=== PATIENT | male | born 1945 | race Hispanic/Latino ===

== ENCOUNTER 2019-10-21 14:21 | Inpatient (IN) | payer OTHER, MEDICARE ==
[~2019-10-21] VITALS: Ht 162.6 cm; Wt 70.3 kg
[~2019-10-21 14:21] MED LIST: ETOMIDATE 2 MG/ML 10 ML VIAL IVP ONE; SUCCINYLCHOLINE CHLORIDE 20 MG/ML 10 ML VIAL IVP ONE
[2019-10-21 15:12] LABS: BASOPHILS % (AUTO) 0.7 % (0.0-5.0); EOSINOPHILS % (AUTO) 0.1 % (0.0-8.0); LYMPHOCYTES % (AUTO) 9.1 % (21.0-51.0); MEAN CORPUSCULAR HGB CONC 31.6 g/dL (32.0-36.0); MEAN CORPUSCULAR VOLUME 95.1 fL (79-99); MONOCYTES % (AUTO) 9.1 % (3.0-13.0); NEUTROPHILS % (AUTO) 80.7 % (40.0-77.0); NUCLEATED RED BLOOD CELLS 0.4 % (0.0-0.19); PLATELET COUNT (AUTO) 113 K/uL (130-400); RED BLOOD CELL COUNT(AUTO) 7.19 MIL/uL (4.50-6.20); RED CELL DISTRIBUTION WIDTH 18.3 % (11.0-15.5); WHITE BLOOD COUNT (AUTO) 11.4 K/uL (4.8-10.8)
[2019-10-21 15:16] LABS: HEMATOCRIT 68.4 % (42-54)
[2019-10-21 15:20] LABS: APPEARANCE,URINE Cloudy (CLEAR); BILIRUBIN,URINE Negative (NEGATIVE); COLOR,URINE Dark Yellow (YELLOW); GLUCOSE, URINE (UA) Negative (NEGATIVE); KETONES,URINE 15 mg/dL (NEGATIVE); LEUKOCYTE ESTERASE ,URINE Small (NEGATIVE); NITRATE,URINE Negative (NEGATIVE); OCCULT BLOOD,URINE Negative (NEGATIVE); PROTEIN,URINE POS 1+ mg/dL (NEGATIVE)
[2019-10-21] MEDS ORDERED: METHYLPREDNISOLONE SOD SUCC 125MG/2ML VIAL ONE (15:20)
[2019-10-21] MEDS ORDERED: LEVOFLOXACIN 500 MG/D5W 100 ML 100 ML ONE (15:20)
[2019-10-21] MEDS ORDERED: ALBUTEROL INHALER 90MCG/INH IH ONE (15:20)
[2019-10-21 15:24] LABS: INR 1.71 (0.85-1.15); PARTIAL THROMBOPLASTIN TIME 30.8 SEC (26.3-35.5); PROTHROMBIN TIME 18.1 SEC (9.6-11.6)
[2019-10-21 15:28] LABS: CREATININE 1.2 mg/dL (0.5-1.5); POTASSIUM 5.3 mmol/L (3.5-5.1)
[2019-10-21 15:39] LABS: ALBUMIN 3.9 g/dL (3.5-5.0); BILIRUBIN,TOTAL 2.3 mg/dL (0.2-1.0); TOTAL PROTEIN, SERUM 7.5 g/dL (6.0-8.3); TROPONIN I 0.12 ng/mL (0.00-0.06)
[2019-10-21 15:40] LABS: BACTERIA,URINE Few /HPF (None Seen); MUCUS,URINE Moderate LPF (None Seen); SPERM,URINE Moderate /HPF (None Seen); SQUAMOUS EPITHELIAL CELL,UR Moderate /HPF (0-2)
[2019-10-21 15:46] LABS: RAPID GROUP A STREP POSITIVE (NEGATIVE)
[2019-10-21 16:15] LABS: ABG BASE EXCESS 4.7 mmol/L (-2.0-3.0); ABG HCO3 34.7 mmol/L (21.0-28.0); ABG OXYGEN SATURATION 63.2 % (95.0-99.0); ABG PCO2 78 mmHg (35-48)
[2019-10-21 18:30] VITALS: BP 121/72
--- NOTE | 2019-10-21 19:00 | NUR ---
RECEIVED REPORT FROM CAROLYN BENAVIDES. PT ARRIVED VIA STRETCHER AT 1830 TO ROOM 223, KENNEDY RECEIVED PT. PT ON HIGH FLOW. NO MEDICAL HISTORY OBTAINED AND PT UNABLE TO ANSWER. PT IS ABLE TO IDENTIFY HIMSELF. NO ADMISSION ENTERED DUE TO PT UNABLE TO ANSWER, POOR HISTORIAN. GOINS WAS INSERTED IN THE ER TODAY,18FR. PT ON HIGH FLOW, O2 AT 91%. BED AT LOWEST LEVEL, WITH BED RAILS UP. CALL LIGHT WITHIN REACH.
--- NOTE | 2019-10-21 19:30 | NUR ---
PT ABLE TO IDENTIFY HIMSELF, STATES HIS NAME. PT TALKING WITH CONFUSION. DOES NOT KNOW WHERE IS. REORIENTED PT TO PLACE ([facility]) AND HIS ROOM. NO FACIAL GRIMACING. NO MOANING. NO DISTRESS. PT ON HIGH FLOW, O2 AT 92%.
--- NOTE | 2019-10-21 20:20 | NUR ---
RECEIVED A PHONE CALL FROM PATIENTS SISTER ENRICO MANTILLA ([phone]). SISTER STATES SHE HAD TO BRING CONRAD (PATIENT) TO ER DUE TO REFUSING HIS MEDS (FUROSEMIDE 20MG BID AND TAMSULOSIN 4MG QD, 2 INHALERS, ONE BEING ALBUTEROL), NOT EATING, UNABLE TO VOID, REFUSING TO BE SHOWERED OR CHANGED. SISTER STATES PT HAS NOT SEEN DR JUDGE IN A VERY LONG TIME BUT THINKS HE HAD AN APPT THIS WEEK WITH DR JUDGE. SISTER STATES 4 SIBLINGS LIVE TOGETHER IN [place]. PT STILL SMOKES CIGARETTES.
[2019-10-21 20:40] LABS: ABG BASE EXCESS 8.5 mmol/L (-2.0-3.0); ABG HCO3 38.2 mmol/L (21.0-28.0); ABG PCO2 78 mmHg (35-48)
[2019-10-21] MEDS ORDERED: IPRATROPIUM/ALBUTEROL SULFATE 3 ML SOLUTION IH PRN (21:15)
[2019-10-21] MEDS ORDERED: FURO20TA6 PO (21:18)
[2019-10-21] MEDS ORDERED: TAMS-1 PO (21:19)
[2019-10-22] MEDS ORDERED: FUROSEMIDE 10 MG/ML 2ML VIAL ONE (00:05)
[2019-10-22 00:25] VITALS: BP 152/96
[2019-10-22] MEDS ORDERED: ALBUTEROL SULFATE/IPRATROPIUM 103/18 MCG/PUFF 14.7 GM INHR IH PRN (02:00)
[2019-10-22 03:53] VITALS: BP 149/86
[2019-10-22] MEDS: FUROSEMIDE 10 MG/ML 2ML VIAL IV SCH ×2 (06:08→06:09)
[2019-10-22] MEDS ORDERED: IPRATROPIUM/ALBUTEROL SULFATE 3 ML SOLUTION IH PRN (07:00)
[2019-10-22 08:19] VITALS: BP 134/95
[2019-10-22] MEDS ORDERED: BUDESONIDE 0.5 MG/2 ML INH IH SCH (09:00)
[2019-10-22 12:07] VITALS: BP 140/88
--- NOTE | 2019-10-22 13:30 | NUR ---
TJ PLAN PATIENT IN COVID UNIT ISOLATION. NO PHONE NUMBERS AVAILABLE ON FACE SHEET. NO ANSWER TO CALL IN ROOM. BLACK WILL CONTINUE TO FOLLOW. Addendum: 10/22/19 at 1331 by BENJAMIN SABA RN CM Amended: Links added.
--- NOTE | 2019-10-22 13:33 | NUR ---
PATIENT CONTINUES TO PULL ALL HIS EQUIPMENT OFF. PULLED OFF HIS HIGH FLOW OXYGEN AND HIS GOINS CATHETER WELL HIS IV. PULLING OFF HIS HEART MONITOR AND WILL BE TRANSFERRED TO ROOM [facility] WITH SITTER PATIENT WILL PULL ON ALL HIS HOSPITAL EQUIPMENT AND ANY IV THAT HE MIGHT HAVE. WILL ATTEMPT TO START ANOTHER. Addendum: 10/22/19 at 1338 by MILLY STOREY RN RN Amended: Links added.
[2019-10-22] MEDS ORDERED: LEVOFLOXACIN 500 MG/D5W 100 ML 100 ML IV SCH (15:00)
--- NOTE | 2019-10-22 15:40 | NUR ---
RECEIVED PATIENT A THIS TIME . CASE RESUMED . PATIENT AWAKE AND ALERT. DR JUDGE EVALUATING PATIENT . 1:1 SITTER AT BEDSIDE . CONT ON HIGH FLOW OXYGEN . WILL CONT TO MONITOR
--- NOTE | 2019-10-22 16:00 | NUR ---
INFORMED DR JUDGE ON YEST HGB 21.6 HCT 68.4 AND POTASSIUM 5.3
[2019-10-22 16:37] LABS: BASOPHILS % (AUTO) 0.1 % (0.0-5.0); HEMATOCRIT 58.2 % (42-54); LYMPHOCYTES % (AUTO) 1.8 % (21.0-51.0); MEAN CORPUSCULAR HEMOGLOBIN 29.8 pg (27.0-33.0); MEAN CORPUSCULAR HGB CONC 31.3 g/dL (32.0-36.0); MEAN CORPUSCULAR VOLUME 95.3 fL (79-99); MONOCYTES % (AUTO) 7.9 % (3.0-13.0); NEUTROPHILS % (AUTO) 88.6 % (40.0-77.0); NUCLEATED RED BLOOD CELLS 0.4 % (0.0-0.19); PLATELET COUNT (AUTO) 83 K/uL (130-400); RED BLOOD CELL COUNT(AUTO) 6.11 MIL/uL (4.50-6.20); RED CELL DISTRIBUTION WIDTH 17.1 % (11.0-15.5); WHITE BLOOD COUNT (AUTO) 14.4 K/uL (4.8-10.8)
[2019-10-22 16:48] LABS: CREATININE 0.8 mg/dL (0.5-1.5)
[2019-10-22 17:40] VITALS: BP 139/97
[2019-10-22 20:00] VITALS: BP 124/84
--- NOTE | 2019-10-22 20:00 | NUR ---
Tiesha from [facility] came to do duplex arterial doppler on both extremeties. patient has zero arterial flow. texted dr. catalan to let him know. he is aware. he replied
[2019-10-22] MEDS ORDERED: FUROSEMIDE 20 MG TABLET PO SCH (21:00)
[2019-10-22] MEDS: BUDESONIDE 0.5 MG/2 ML INH IH SCH (22:30)
--- NOTE | 2019-10-22 23:49 | NUR ---
received orders for cardiology consult in am for cold feet and no arterial flow, called respiratory therapist for nightly bipap. let dr. catalan know about patient's anxiety and high blood pressure of 161/85 and tachycardia of 113
[2019-10-23] VITALS (15 sets, daily range): BP systolic 83–146; BP diastolic 55–88
[2019-10-23] MEDS ORDERED: LORAZEPAM 2 MG/ML 1 ML VIAL IVP ONE
[2019-10-23] MEDS ORDERED: LORAZEPAM 2 MG/ML 1 ML VIAL ONE (00:02)
[2019-10-23] MEDS ORDERED: LORAZEPAM 2 MG/ML 1 ML VIAL IVP PRN (00:30)
[2019-10-23] MEDS: BUDESONIDE 0.5 MG/2 ML INH IH SCH ×2 (07:02→18:32)
--- NOTE | 2019-10-23 08:40 | NUR ---
RAPID RESPONSE CALLED, PATIENT NO RESPONDING TO PAINFUL STIMULI.
--- NOTE | 2019-10-23 08:45 | NUR ---
DR. ALFIE BROWN, NO ANSWER TO OFFICE OR CELL PHONE.
[2019-10-23 08:50] LABS: ABG BASE EXCESS 8.5 mmol/L (-2.0-3.0); ABG HCO3 47.9 mmol/L (21.0-28.0); ABG OXYGEN SATURATION 95.5 % (95.0-99.0); ABG PCO2 > 147 mmHg (35-48)
[2019-10-23] MEDS: TAMSULOSIN HCL 0.4 MG CAP.ER.24H PO SCH (09:00)
[2019-10-23] MEDS ORDERED: FLUMAZENIL 0.1MG/1ML 5ML VIAL IV SCH (09:00)
--- NOTE | 2019-10-23 10:01 | NUR ---
FULL CODE Sw contacted by Yanique claire. Pt needing to be intubated, family can not be reached. SW spoke to pt's sister Yuli Donahue [phone]. Informed sister that pt was not doing well and asked about pt's wishes. Sister stated that pt has never had discussed with her, and pt has no or children. She and 2 siblings would be nearest relatives. Sister informed that pt was needing to be intubated and sister talked to someone else in room and said "he's not gonna like that". Sister then stated, "go ahead and intubate him". Sw asked if pt had ever discussed wishes with her or siblings, sister stated "no". Sister asked about code status. Sister again spoke to some else in the room and then stated "go ahead and try to save his life", "resuscitate him". Sw verified to sister that she is wanting pt intubated and resuscitated, sister stated "yes". ASked sister to please answer cell when called by [facility], for update dates and decision making. Chi spoke to nurse simon and informed family wants pt to remain FULL CODE.
[2019-10-23] MEDS ORDERED: PROPOFOL 1000 MG/100 ML IV ONE (10:30)
[2019-10-23 11:07] LABS: ABG HCO3 39.8 mmol/L (21.0-28.0); ABG OXYGEN SATURATION 81.4 % (95.0-99.0); ABG PCO2 43 mmHg (35-48)
[2019-10-23 11:28] LABS: ABG BASE EXCESS 15.8 mmol/L (-2.0-3.0); ABG PCO2 41 mmHg (35-48)
--- NOTE | 2019-10-23 11:44 | NUR ---
DCP CM spoke to pt's sister Yuli Donahue discussed dc plans. As per sister, pt is assists with ADL's recently, was weak, and was not really having any appetite. Pt has a walker. Denies any other equipments/services. Discussed possible need for placement once pt stable for rehab, sister is agreeable, will discuss further once pt more stable. Aware pt pending possible intubation today. Sister verbalized they want everything done for pt for now. Verified pt SS# [id number]. Yuli given CM # in case family has questoins. For now dcp plan to home vs SNF/[facility]. CM to cont to follow up. Addendum: 10/23/19 at 1153 by MICHELLE MADSEN LVN CM Amended: Links added.
--- NOTE | 2019-10-23 12:05 | NUR ---
@ 0848 PATIENT GIVEN ROMAZICAN 0.2MG IVP TO REVERSE REACTION OF ATIVAN 1MG GIVEN AT 0002. PATIENT HAS OPENED HIS EYES AND ATTEMPTING TO SPEAK. VS: 130/71 -118 -97%. @ 0919 DR. MENEZES'S CONSULTED FOR R/O BLE ARTERIAL OBSTRUCTION. ORDER CT ABD/AORTA WITH RUN OFF WITH CONTRAST. @ 0926 DR. GOVEA CONSULTED FOR RAPID RESPONSE PROTOCOL, WILL SE PATIENT LATER TODAY. @ 0938 DR. GOVEA PAGED AGAIN REGARDING ABG RESULTS. NOTED TO NOTIFY PRIMARY FOR INTUBATION ORDERS. @ 0943 DR. JUDGE RE-PAGED, NO ANSWER TO OFFICE OR CELL PHONE. @ 1005 SPOKE TO PATIENT'S SISTER ELVIRA MANTILLA REGARDING PATIENT'S CODE STATUS. PATIENT TO REMAIN FULL CODE. ALSO CONSENTED TO CT WITH CONTRAST OF ABD/AORTA WITH RUN OFF. @ 1015 DR. EASTON AT BEDSIDE TO INTUBATE PATIENT. @ 1020 DR. JUDGE PAGED TO OFFICE AND CELL PHONE, NO RESPONSE AT THIS TIME. @ 1045 ICU NURSE CAROLYN VILLALOBOS AT PATIENT'S BEDSIDE. @ 1205 PATIENT TRANSFERRED TO DAY PATIENT RM #[id number]
--- NOTE | 2019-10-23 12:15 | NUR ---
PT RECEIVED FROM 3RD FLOOR INTUBATED/SEDATED. PATIENT CURRENTLY WITH STABLE V/S WITHOUT PRESSORS HR 88 SPO2 100% RESPS 20 BP 117/77
[2019-10-23] MEDS ORDERED: GLUCAGON 1MG KIT 1 MG ML IM PRN (14:00)
[2019-10-23] MEDS ORDERED: DEXTROSE 50%-WATER 50 ML DISP.SYRIN IV PRN (14:00)
[2019-10-23 14:24] LABS: BASOPHILS % (AUTO) 0.1 % (0.0-5.0); LYMPHOCYTES % (AUTO) 4.7 % (21.0-51.0); MEAN CORPUSCULAR HEMOGLOBIN 29.8 pg (27.0-33.0); MEAN CORPUSCULAR HGB CONC 29.6 g/dL (32.0-36.0); MEAN CORPUSCULAR VOLUME 100.9 fL (79-99); MONOCYTES % (AUTO) 6.8 % (3.0-13.0); NEUTROPHILS % (AUTO) 87.8 % (40.0-77.0); NUCLEATED RED BLOOD CELLS 0.7 % (0.0-0.19); PLATELET COUNT (AUTO) 84 K/uL (130-400); RED BLOOD CELL COUNT(AUTO) 6.57 MIL/uL (4.50-6.20); RED CELL DISTRIBUTION WIDTH 17.4 % (11.0-15.5); WHITE BLOOD COUNT (AUTO) 14.8 K/uL (4.8-10.8)
[2019-10-23] MEDS ORDERED: LIDOCAINE HCL 2% 20ML ONE (14:27)
[2019-10-23] MEDS ORDERED: FENTANYL 1000MCG+NS 100ML 100 ML IV SCH (14:30)
[2019-10-23 14:34] LABS: CREATININE 0.7 mg/dL (0.5-1.5); POTASSIUM 5.4 mmol/L (3.5-5.1)
[2019-10-23 14:44] LABS: ALBUMIN 3.8 g/dL (3.5-5.0); BILIRUBIN,TOTAL 2.2 mg/dL (0.2-1.0); MAGNESIUM 2.8 mg/dL (1.80-2.40); TOTAL PROTEIN, SERUM 7.2 g/dL (6.0-8.3)
[2019-10-23 14:59] LABS: HEMATOCRIT 66.3 % (42-54)
[2019-10-23] MEDS ORDERED: PROPOFOL 1000 MG/100 ML 100 ML IV PRN (15:30)
[2019-10-23] MEDS ORDERED: FUROSEMIDE 10 MG/ML 4ML VIAL IV SCH (15:30)
[2019-10-23] MEDS: ZOSYN 3.375GM+NS 50ML 50 ML IV SCH ×2 (16:02→23:15)
[2019-10-23] MEDS ORDERED: INSULIN HUMULIN R 100 UNIT/ML 3ML SQ SCH (16:30)
--- NOTE | 2019-10-23 16:41 | NUR ---
RD NOTIFICATION - TUBE FEEDING Pt Intubated, Tube Feeding per RN. Recommend continuous Vital AF 1.2 initiated at 25 mls/hr for first 5 hours. Increase rate as tolerated by 5mL every 5 hours to goal Goal rate: 50mls/hr to provide 1440kcal, 90gm protein, 973 free H2O. Flushes: 100mL every 6 hours. Recs to be placed with Pt chart in ICU. Pt admitted with COPD, CHF. PNA as per EMR. Elevated serum potassium with Lasix in place. Altered LFTs. RD to continue to monitor. Please notify as additional nutrition concerns arise. Thank you. Addendum: 10/23/19 at [address] RD Amended: Links added.
[2019-10-23] MEDS: INSULIN HUMULIN R 100 UNIT/ML 3ML SQ SCH (18:00)
[2019-10-23] MEDS ORDERED: BUDESONIDE 0.25 MG/2 ML INH IH SCH ×3 (18:00)
[2019-10-23] MEDS: LINEZOLID 600 MG/ISO-OSM 300 ML IV SCH (18:20)
[2019-10-23] MEDS: ACETYLCYSTEINE 20% 200MG/ML 4ML VIAL IH SCH ×2 (18:32→23:22)
[2019-10-23] MEDS ORDERED: HEPARIN SODIUM 5000UNIT/ML 1ML VIAL SQ PRN (20:00)
[2019-10-23] MEDS ORDERED: HEPARIN 25000 UNITS/250 ML D5W 250 ML IV SCH (20:00)
[2019-10-23 20:06] LABS: APPEARANCE BODY FLUID CLEAR (CLEAR); COLOR,BODY FLUID YELLOW (LT YELLOW); SPECIMENTYPE,BODY FLUID PLEURAL; TOTAL VOLUME,BODY FLUID 21 mL
[2019-10-23 20:07] LABS: BODY FLUID RBC 659 /cu. mm.; BODY FLUID WBC 87 /cu. mm.
[2019-10-23] MEDS: METOPROLOL TARTRATE 25 MG TAB PO SCH ×2 (21:00→22:18)
[2019-10-23 21:27] LABS: BF LYMPHOCYTE 49 %; BF MONOCYTE 1 %; BF OTHER CELLS 9
[2019-10-23 21:36] LABS: INR 1.41 (0.85-1.15); PARTIAL THROMBOPLASTIN TIME 28.2 SEC (26.3-35.5)
[2019-10-23] MEDS: IPRATROPIUM/ALBUTEROL SULFATE 3 ML SOLUTION IH SCH ×2 (23:22→23:23)
[2019-10-24] VITALS (28 sets, daily range): BP systolic 84–114; BP diastolic 55–76
[2019-10-24 04:36] LABS: MEAN CORPUSCULAR HEMOGLOBIN 29.9 pg (27.0-33.0); MEAN CORPUSCULAR HGB CONC 32.9 g/dL (32.0-36.0); MEAN CORPUSCULAR VOLUME 90.9 fL (79-99); NUCLEATED RED BLOOD CELLS 0.3 % (0.0-0.19); PLATELET COUNT (AUTO) 60 K/uL (130-400); RED BLOOD CELL COUNT(AUTO) 6.38 MIL/uL (4.50-6.20); RED CELL DISTRIBUTION WIDTH 17.2 % (11.0-15.5); WHITE BLOOD COUNT (AUTO) 11.8 K/uL (4.8-10.8)
[2019-10-24 04:58] LABS: ALBUMIN 2.4 g/dL (3.5-5.0); BILIRUBIN,TOTAL 3.6 mg/dL (0.2-1.0); CREATININE 1.1 mg/dL (0.5-1.5); MAGNESIUM 1.9 mg/dL (1.80-2.40); POTASSIUM 3.7 mmol/L (3.5-5.1)
[2019-10-24] MEDS: LINEZOLID 600 MG/ISO-OSM 300 ML IV SCH ×2 (05:20→18:39)
[2019-10-24] MEDS: INSULIN HUMULIN R 100 UNIT/ML 3ML SQ SCH ×3 (06:00→12:00)
[2019-10-24] MEDS: IPRATROPIUM/ALBUTEROL SULFATE 3 ML SOLUTION IH SCH ×3 (07:01→19:26)
[2019-10-24] MEDS: ACETYLCYSTEINE 20% 200MG/ML 4ML VIAL IH SCH ×3 (07:01→19:26)
[2019-10-24] MEDS: BUDESONIDE 0.5 MG/2 ML INH IH SCH ×2 (07:16→19:45)
[2019-10-24] MEDS: ZOSYN 3.375GM+NS 50ML 50 ML IV SCH ×3 (08:23→23:54)
[2019-10-24] MEDS: FUROSEMIDE 10 MG/ML 4ML VIAL IV SCH (08:23)
[2019-10-24] MEDS: METOPROLOL TARTRATE 25 MG TAB PO SCH ×3 (08:27→21:00)
[2019-10-24] MEDS: TAMSULOSIN HCL 0.4 MG CAP.ER.24H PO SCH (08:27)
[2019-10-24] MEDS ORDERED: IOHEXOL 350 MG/ML 100ML INFUS..BTL IV ONE (08:44)
[2019-10-24] MEDS ORDERED: IOHEXOL-350 50ML VIAL IV ONE (08:44)
[2019-10-24] MEDS: PANTOPRAZOLE 40 MG/VIAL IVP SCH (08:44)
[2019-10-24] MEDS: ASPIRIN 81MG TAB.CHEW PO SCH (09:00)
[2019-10-24] MEDS ORDERED: ENOXAPARIN SODIUM 30 MG/0.3 ML SQ SCH (09:00)
[2019-10-24] MEDS ORDERED: PANTOPRAZOLE SODIUM 40 MG TABLET.DR PO SCH (09:00)
--- NOTE | 2019-10-24 09:30 | NUR ---
ARRIVED BACK INTO ROOM FROM CT SCAN. CT SCAN COMPLETED. PATIENT BACK IN ROOM AT 0930 IN STABLE CONDITION.
--- NOTE | 2019-10-24 12:20 | NUR ---
HEPARIN DRIP HEPARIN DRIP ON HOLD FROM [id number]. HEPARIN RESTARTED AT 13 U/KG/HR (9.39 ML/HR), PER PROTOCOL. DOCUMENTED IN INTAKE AND OUTPUT.
[2019-10-24 13:45] LABS: ABG BASE EXCESS 17.9 mmol/L (-2.0-3.0); ABG HCO3 38.6 mmol/L (21.0-28.0); ABG OXYGEN SATURATION 99.2 % (95.0-99.0); ABG PCO2 32 mmHg (35-48)
[2019-10-24] MEDS: ACETAMINOPHEN 325 MG TAB PO PRN (14:37)
[2019-10-24] MEDS: DEXMEDETOMIDINE HCL 400 MCG in SODIUM CHLORIDE 0.9% 100 ML IV SCH (15:18)
[2019-10-24] MEDS ORDERED: POTASSIUM CHLORIDE 10% ELIXIR 20 MEQ/15 ML UDCUP PO SCH (15:30)
--- NOTE | 2019-10-24 16:30 | NUR ---
PAGED DR. JOHNNY TURNER PAGED AT [address] RESULTS FROM THIS MORNING.
[2019-10-24 16:31] LABS: ABG BASE EXCESS 17.3 mmol/L (-2.0-3.0); ABG HCO3 41.5 mmol/L (21.0-28.0); ABG OXYGEN SATURATION 95.6 % (95.0-99.0); ABG PCO2 46 mmHg (35-48)
--- NOTE | 2019-10-24 16:45 | NUR ---
[facility] consult Patient assessed as ordered. [facility] recommendations submitted and report given to patient's nurse, CAROLYN Jefferson. Addendum: 10/25/19 at 0804 by CHE ELIZABETH RN/ Amended: Links added.
[2019-10-24] MEDS ORDERED: ARGATROBAN 250 MG/2.5 ML VIAL 250 MG in SODIUM CHLORIDE 0.9% 250 ML IV PRN (18:15)
[2019-10-24] MEDS ORDERED: HONEY 1 APPL/ML TUBE TP SCH (18:30)
[2019-10-24] MEDS ORDERED: SODIUM CHLORIDE 0.9% 250 ML IV ONE (23:11)
[2019-10-25] VITALS (33 sets, daily range): BP systolic 91–132; BP diastolic 48–80
[2019-10-25] MEDS: IPRATROPIUM/ALBUTEROL SULFATE 3 ML SOLUTION IH SCH ×5 (00:28→23:09)
[2019-10-25] MEDS: ACETYLCYSTEINE 20% 200MG/ML 4ML VIAL IH SCH ×5 (00:28→23:09)
--- NOTE | 2019-10-25 00:30 | NUR ---
MD CALL TEMP ELEVATED AND DUE FOR TRANSFUSION. DR JUDGE CALLED AND INFORMED OF TEMP AND NEED FOR TRANSFUSION. ORDERS RECEIVED AND CARRIED OUT.
[2019-10-25] MEDS ORDERED: DiphenhydrAMINE HCL 50 MG/ML VIAL ONE (00:35)
[2019-10-25] MEDS: ACETAMINOPHEN 325 MG TAB PO PRN ×2 (00:42→08:28)
[2019-10-25] MEDS ORDERED: DiphenhydrAMINE HCL 50 MG/ML VIAL IV SCH (00:45)
[2019-10-25] MEDS ORDERED: ACETAMINOPHEN 650 MG SUPPOSITORY RC ONE (00:47)
[2019-10-25] MEDS: DEXMEDETOMIDINE HCL 400 MCG in SODIUM CHLORIDE 0.9% 100 ML IV SCH ×2 (01:09→10:29)
[2019-10-25] MEDS: LINEZOLID 600 MG/ISO-OSM 300 ML IV SCH ×2 (04:11→15:42)
[2019-10-25 04:19] LABS: ABG HCO3 39.9 mmol/L (21.0-28.0); ABG OXYGEN SATURATION 97.2 % (95.0-99.0); ABG PCO2 44 mmHg (35-48)
[2019-10-25 04:36] LABS: MEAN CORPUSCULAR HEMOGLOBIN 29.2 pg (27.0-33.0); MEAN CORPUSCULAR HGB CONC 32.2 g/dL (32.0-36.0); MEAN CORPUSCULAR VOLUME 90.6 fL (79-99); RED BLOOD CELL COUNT(AUTO) 5.96 MIL/uL (4.50-6.20); RED CELL DISTRIBUTION WIDTH 17.1 % (11.0-15.5); WHITE BLOOD COUNT (AUTO) 11.3 K/uL (4.8-10.8)
[2019-10-25 04:51] LABS: ALBUMIN 2.5 g/dL (3.5-5.0); BILIRUBIN,TOTAL 4.1 mg/dL (0.2-1.0); CREATININE 1.1 mg/dL (0.5-1.5); MAGNESIUM 2.1 mg/dL (1.80-2.40); PHOSPHORUS 3.5 mg/dL (2.5-4.9); TOTAL PROTEIN, SERUM 5.5 g/dL (6.0-8.3)
[2019-10-25 04:52] LABS: INR 1.58 (0.85-1.15); PARTIAL THROMBOPLASTIN TIME 43.5 SEC (26.3-35.5); PROTHROMBIN TIME 16.8 SEC (9.6-11.6)
[2019-10-25 05:14] LABS: POTASSIUM 2.8 mmol/L (3.5-5.1)
[2019-10-25] MEDS: POTASSIUM CHLORIDE 20MEQ/100ML 100 ML IV PRN ×2 (05:24→10:28)
[2019-10-25] MEDS: INSULIN HUMULIN R 100 UNIT/ML 3ML SQ SCH ×4 (06:00→18:00)
[2019-10-25] MEDS: BUDESONIDE 0.5 MG/2 ML INH IH SCH ×2 (06:38→18:32)
[2019-10-25] MEDS ORDERED: PHARMACY COMMUNICATION MISC SCH (06:45)
[2019-10-25] MEDS: ZOSYN 3.375GM+NS 50ML 50 ML IV SCH ×2 (06:50→15:42)
[2019-10-25] MEDS: PANTOPRAZOLE 40 MG/VIAL IVP SCH (08:26)
[2019-10-25] MEDS: TAMSULOSIN HCL 0.4 MG CAP.ER.24H PO SCH (08:28)
[2019-10-25] MEDS: METOPROLOL TARTRATE 25 MG TAB PO SCH ×3 (08:28→20:44)
[2019-10-25] MEDS: FUROSEMIDE 10 MG/ML 4ML VIAL IV SCH (08:29)
[2019-10-25] MEDS: ASPIRIN 81MG TAB.CHEW PO SCH (08:29)
[2019-10-25] MEDS ORDERED: NOREPINEPHRINE BITARTRATE 8 MG in DEXTROSE 5%-WATER 250 ML IV PRN (11:00)
[2019-10-25] MEDS ORDERED: EPINEPHRINE 10 MG in SODIUM CHLORIDE 0.9% 240 ML IV PRN (11:00)
[2019-10-25] MEDS ORDERED: LIDOCAINE PF 2% 5ML ABBOJECT ONE (11:39)
[2019-10-25] MEDS ORDERED: GLYCOPYRROLATE 1 MG/5 ML SYRINGE ONE (11:40)
[2019-10-25] MEDS ORDERED: NEOSTIGMINE 5MG/5ML SYR IV ONE (11:40)
[2019-10-25] MEDS ORDERED: MIDAZOLAM HCL 1 MG/ML 2ML VIAL ONE (11:40)
[2019-10-25] MEDS ORDERED: ROCURONIUM 10MG/1ML SYR 10 MG/ML ML ONE (11:41)
[2019-10-25] MEDS ORDERED: FENTANYL CITRATE PF 50 MCG/1 ML 2ML VIAL ONE (11:41)
[2019-10-25] MEDS ORDERED: EPINEPHRINE 1 MG/ML 30ML VIAL IJ ONE (11:46)
--- NOTE | 2019-10-25 11:48 | NUR ---
SURGERY Patient taken to surgery at [address] May
[2019-10-25 12:06] LABS: ABG BASE EXCESS 14.7 mmol/L (-2.0-3.0); ABG HCO3 38.1 mmol/L (21.0-28.0); ABG OXYGEN SATURATION 99.7 % (95.0-99.0); ABG PCO2 41 mmHg (35-48)
[2019-10-25] MEDS ORDERED: CEFAZOLIN SODIUM 1 GM VIAL ONE (12:31)
[2019-10-25] MEDS ORDERED: POTASSIUM CHLORIDE 20MEQ/100ML 200 ML IV ONE (13:12)
[2019-10-25] MEDS ORDERED: MORPHINE SULFATE 2 MG/ML 1ML SYG IVP PRN ×2 (13:30)
[2019-10-25 15:08] LABS: HEMATOCRIT 49.4 % (42-54); MEAN CORPUSCULAR HEMOGLOBIN 29.6 pg (27.0-33.0); MEAN CORPUSCULAR HGB CONC 31.6 g/dL (32.0-36.0); MEAN CORPUSCULAR VOLUME 93.7 fL (79-99); RED BLOOD CELL COUNT(AUTO) 5.27 MIL/uL (4.50-6.20); RED CELL DISTRIBUTION WIDTH 17.6 % (11.0-15.5); WHITE BLOOD COUNT (AUTO) 14.3 K/uL (4.8-10.8)
[2019-10-25 15:19] LABS: CREATININE 1.1 mg/dL (0.5-1.5); POTASSIUM 3.6 mmol/L (3.5-5.1)
[2019-10-25 15:21] LABS: INR 1.61 (0.85-1.15); PARTIAL THROMBOPLASTIN TIME 51.9 SEC (26.3-35.5); PROTHROMBIN TIME 17.1 SEC (9.6-11.6)
--- NOTE | 2019-10-25 15:31 | NUR ---
per UrielRN patient is still intubated and not ready to evaluate and treat for Physical Therapy today. Addendum: 10/25/19 at 1532 by STANLEY AGOSTO, PT PT Amended: Links added.
[2019-10-25 17:05] LABS: ABG BASE EXCESS 7.5 mmol/L (-2.0-3.0); ABG HCO3 35.7 mmol/L (21.0-28.0); ABG PCO2 66 mmHg (35-48)
--- NOTE | 2019-10-25 17:23 | NUR ---
RYAN FOLLOW UP Tube feeding held, pending procedure. Recommend resume feeding when medically feasible. RD to continue to monitor. Please notify as additional concerns arise. Thank you. Addendum: 10/25/19 at [address] RD Amended: Links added.
--- NOTE | 2019-10-25 19:13 | NUR ---
1600 Patients pulses were found with doppler in Right dorsalis Pedis and Left posterior tibial artery via doppler. Patients lower extremity remain cool but not cold as before with signs of improved circulation. Hopeful for good outcome however lower extremities remain dark and dusky Cardiovascular surgeon and button inspector aware.
[2019-10-25] MEDS: MEROPENEM 500 MG VIAL IVP SCH (21:19)
[2019-10-25] MEDS ORDERED: SODIUM CHLORIDE 0.9% 500ML 500 ML IV ONE (22:59)
[2019-10-26] VITALS (36 sets, daily range): BP systolic 60–136; BP diastolic 40–82
[2019-10-26] MEDS: DEXMEDETOMIDINE HCL 400 MCG in SODIUM CHLORIDE 0.9% 100 ML IV SCH ×2 (00:41→12:12)
[2019-10-26 03:56] LABS: ABG BASE EXCESS 7.4 mmol/L (-2.0-3.0); ABG HCO3 31.5 mmol/L (21.0-28.0); ABG OXYGEN SATURATION 98.7 % (95.0-99.0); ABG PCO2 42 mmHg (35-48)
[2019-10-26 04:12] LABS: MEAN CORPUSCULAR HEMOGLOBIN 29.8 pg (27.0-33.0); MEAN CORPUSCULAR HGB CONC 32.1 g/dL (32.0-36.0); MEAN CORPUSCULAR VOLUME 92.6 fL (79-99); NUCLEATED RED BLOOD CELLS 0.1 % (0.0-0.19); RED BLOOD CELL COUNT(AUTO) 6.52 MIL/uL (4.50-6.20); RED CELL DISTRIBUTION WIDTH 18.1 % (11.0-15.5); WHITE BLOOD COUNT (AUTO) 15.4 K/uL (4.8-10.8)
[2019-10-26 04:21] LABS: HEMATOCRIT 60.4 % (42-54)
[2019-10-26 04:28] LABS: INR 1.55 (0.85-1.15); PARTIAL THROMBOPLASTIN TIME 41.3 SEC (26.3-35.5); PROTHROMBIN TIME 16.5 SEC (9.6-11.6)
[2019-10-26 04:45] LABS: ALBUMIN 2.3 g/dL (3.5-5.0); BILIRUBIN,TOTAL 6.5 mg/dL (0.2-1.0); CREATININE 1.7 mg/dL (0.5-1.5); TOTAL PROTEIN, SERUM 5.5 g/dL (6.0-8.3)
[2019-10-26] MEDS: LINEZOLID 600 MG/ISO-OSM 300 ML IV SCH ×2 (04:49→16:57)
[2019-10-26] MEDS: INSULIN HUMULIN R 100 UNIT/ML 3ML SQ SCH ×5 (06:00→23:35)
[2019-10-26] MEDS ORDERED: PHARMACY COMMUNICATION MISC SCH ×2 (06:00→07:45)
[2019-10-26] MEDS: MEROPENEM 500 MG VIAL IVP SCH ×3 (06:25→21:55)
[2019-10-26] MEDS: ACETYLCYSTEINE 20% 200MG/ML 4ML VIAL IH SCH ×4 (06:26→23:21)
[2019-10-26] MEDS: BUDESONIDE 0.5 MG/2 ML INH IH SCH ×2 (06:26→18:43)
[2019-10-26] MEDS: IPRATROPIUM/ALBUTEROL SULFATE 3 ML SOLUTION IH SCH ×4 (06:26→23:20)
[2019-10-26] MEDS ORDERED: COMPOUND PO MISCELLANEOUS 1 EACH MISC MISC PRN (08:15)
[2019-10-26] MEDS: FUROSEMIDE 10 MG/ML 4ML VIAL IV SCH (08:47)
[2019-10-26] MEDS: CLOPIDOGREL BISULFATE 75 MG TAB PO SCH (08:47)
[2019-10-26] MEDS: PANTOPRAZOLE 40 MG/VIAL IVP SCH (08:48)
[2019-10-26] MEDS: ASPIRIN 81MG TAB.CHEW PO SCH (08:50)
[2019-10-26] MEDS: TAMSULOSIN HCL 0.4 MG CAP.ER.24H PO SCH (08:50)
[2019-10-26] MEDS: METOPROLOL TARTRATE 25 MG TAB PO SCH ×3 (08:54→20:47)
[2019-10-26] MEDS ORDERED: PHYTONADIONE PO SCH ×2 (09:00)
[2019-10-26] MEDS ORDERED: WATER FOR INJECTION STERILE PO SCH ×2 (09:00)
--- NOTE | 2019-10-26 11:10 | NUR ---
patient still intubated.No PT Evaluation perform. Addendum: 10/26/19 at 1344 by STANLEY AGOSTO, PT PT Amended: Links added.
[2019-10-26] MEDS ORDERED: NOREPINEPHRINE 4MG/NS 250ML 250 ML IV ONE (13:09)
[2019-10-26] MEDS ORDERED: LACTATED RINGERS 1000ML 1,000 ML IV ONE (13:30)
[2019-10-26] MEDS ORDERED: NOREPINEPHRINE 4MG/NS 250ML 250 ML IV PRN (13:30)
[2019-10-26] MEDS ORDERED: FENTANYL CITRATE PF 0.05 MG/ML 1,000 MCG in SODIUM CHLORIDE 0.9% 100 ML PRN (13:30)
[2019-10-26 14:04] LABS: ABG BASE EXCESS 4.6 mmol/L (-2.0-3.0); ABG HCO3 29.5 mmol/L (21.0-28.0); ABG OXYGEN SATURATION 97.3 % (95.0-99.0); ABG PCO2 45 mmHg (35-48)
--- NOTE | 2019-10-26 14:08 | NUR ---
PALLIATIVE CARE SW spoke to Dr Contreras who is out of town for Weekend. Sw to update Dr Contreras when he returns next week. Lukas nurse hellen
[2019-10-26] MEDS: SODIUM CHLORIDE 0.9% 1000ML 1,000 ML IV SCH ×2 (14:51→23:17)
[2019-10-26] MEDS: FENTANYL 1000MCG+NS 100ML IV.SOLN IV SCH (14:52)
[2019-10-26] MEDS: SODIUM CHLORIDE IVP PRN ×2 (14:54)
[2019-10-26] MEDS: LORAZEPAM IVP PRN ×2 (14:54)
[2019-10-26] MEDS ORDERED: FUROSEMIDE 10 MG/ML 10ML VIAL IVP ONE (15:00)
[2019-10-26] MEDS: VASOPRESSIN 20 UNITS in SODIUM CHLORIDE 0.9% 99 ML IV PRN ×2 (15:08→21:57)
[2019-10-26] MEDS ORDERED: HYDROCORTISONE SOD SUCCINATE 100 MG/2 ML VIAL ONE (16:55)
[2019-10-26] MEDS: HYDROCORTISONE SOD SUCCINATE 100 MG/2 ML VIAL IV SCH ×2 (16:57→23:35)
[2019-10-26 19:34] LABS: APPEARANCE,URINE SL CLOUDY (CLEAR); BILIRUBIN,URINE MODERATE (NEGATIVE); COLOR,URINE BROWN (YELLOW); GLUCOSE, URINE (UA) NEGATIVE (NEGATIVE); KETONES,URINE 5 mg/dL (NEGATIVE); LEUKOCYTE ESTERASE ,URINE TRACE (NEGATIVE); NITRATE,URINE POSITIVE (NEGATIVE); OCCULT BLOOD,URINE MODERATE (NEGATIVE); PH,URINE 6.5 (5.0-8.0); PROTEIN,URINE >=300 mg/dL (NEGATIVE)
[2019-10-26 19:43] LABS: BACTERIA,URINE Moderate /HPF (None Seen); MUCUS,URINE Few LPF (None Seen); RBC,URINE 51-100 /HPF (0-1); SQUAMOUS EPITHELIAL CELL,UR Few /HPF (0-2)
[2019-10-26 22:12] LABS: ABG BASE EXCESS 0.6 mmol/L (-2.0-3.0); ABG HCO3 24.7 mmol/L (21.0-28.0); ABG OXYGEN SATURATION 95.9 % (95.0-99.0); ABG PCO2 38 mmHg (35-48)
[2019-10-27] VITALS (23 sets, daily range): BP systolic 18–126; BP diastolic 13–78
[2019-10-27] MEDS: SODIUM CHLORIDE IVP PRN ×2 (04:05)
[2019-10-27] MEDS: LORAZEPAM IVP PRN ×2 (04:05)
[2019-10-27] MEDS: LINEZOLID 600 MG/ISO-OSM 300 ML IV SCH (04:25)
[2019-10-27 05:04] LABS: HEMATOCRIT 52.4 % (42-54); MEAN CORPUSCULAR HEMOGLOBIN 29.2 pg (27.0-33.0); MEAN CORPUSCULAR HGB CONC 31.7 g/dL (32.0-36.0); MEAN CORPUSCULAR VOLUME 92.1 fL (79-99); PLATELET COUNT (AUTO) 78 K/uL (130-400); RED BLOOD CELL COUNT(AUTO) 5.69 MIL/uL (4.50-6.20); RED CELL DISTRIBUTION WIDTH 17.2 % (11.0-15.5); WHITE BLOOD COUNT (AUTO) 17.2 K/uL (4.8-10.8)
[2019-10-27] MEDS: INSULIN HUMULIN R 100 UNIT/ML 3ML SQ SCH (05:32)
[2019-10-27 05:35] LABS: ALBUMIN 1.6 g/dL (3.5-5.0); BILIRUBIN,TOTAL 4.5 mg/dL (0.2-1.0); CREATININE 2.9 mg/dL (0.5-1.5); MAGNESIUM 2.3 mg/dL (1.80-2.40); PHOSPHORUS 8.9 mg/dL (2.5-4.9); POTASSIUM 5.2 mmol/L (3.5-5.1); TOTAL PROTEIN, SERUM 4.2 g/dL (6.0-8.3)
[2019-10-27] MEDS: MEROPENEM 500 MG VIAL IVP SCH (05:36)
[2019-10-27] MEDS: SODIUM CHLORIDE 0.9% 1000ML 1,000 ML IV SCH ×2 (05:36→08:32)
[2019-10-27] MEDS: HYDROCORTISONE SOD SUCCINATE 100 MG/2 ML VIAL IV SCH (05:36)
[2019-10-27 05:45] LABS: BAND NEUTROPHILS % (MANUAL) 5 % (0-2); LYMPHOCYTES % (MANUAL) 7 % (22-44); MONOCYTES % (MANUAL) 5 % (2-9); SEGMENTED NEUTROPHILS % 83 % (40-70)
[2019-10-27 05:46] LABS: MAN.DIFF COMMENT-IMPRESSION MANUAL DIFFERENTIAL; PLATELET MORPHOLOGY COMMENT MARKED DECREASE
[2019-10-27] MEDS: VASOPRESSIN 20 UNITS in SODIUM CHLORIDE 0.9% 99 ML IV PRN (06:02)
[2019-10-27 06:13] LABS: ABG BASE EXCESS 0.1 mmol/L (-2.0-3.0); ABG HCO3 25.4 mmol/L (21.0-28.0); ABG OXYGEN SATURATION 97.5 % (95.0-99.0); ABG PCO2 44 mmHg (35-48)
[2019-10-27] MEDS: IPRATROPIUM/ALBUTEROL SULFATE 3 ML SOLUTION IH SCH ×2 (06:19→12:14)
[2019-10-27] MEDS: BUDESONIDE 0.5 MG/2 ML INH IH SCH (06:19)
[2019-10-27] MEDS: ACETYLCYSTEINE 20% 200MG/ML 4ML VIAL IH SCH ×2 (06:20→12:14)
[2019-10-27] MEDS: FENTANYL 1000MCG+NS 100ML IV.SOLN IV SCH (06:38)
[2019-10-27] MEDS: METOPROLOL TARTRATE 25 MG TAB PO SCH (08:20)
[2019-10-27] MEDS: PANTOPRAZOLE 40 MG/VIAL IVP SCH (08:30)
[2019-10-27] MEDS: TAMSULOSIN HCL 0.4 MG CAP.ER.24H PO SCH (08:30)
[2019-10-27] MEDS: CLOPIDOGREL BISULFATE 75 MG TAB PO SCH (08:31)
[2019-10-27] MEDS: ASPIRIN 81MG TAB.CHEW PO SCH (08:31)
[2019-10-27] MEDS: FUROSEMIDE 10 MG/ML 4ML VIAL IV SCH (08:31)
[2019-10-27] MEDS ORDERED: PHYTONADIONE PO SCH ×2 (09:00)
[2019-10-27] MEDS ORDERED: THIAMINE HCL 100 MG/ML 2ML VIAL IVP SCH (09:00)
[2019-10-27] MEDS ORDERED: [UNRECOGNIZED DRUG - OTHER] PO SCH ×2 (09:00)
[2019-10-27] MEDS ORDERED: HEPARIN 25000 UNITS/250 ML D5W 250 ML IV SCH (10:30)
--- NOTE | 2019-10-27 13:27 | NUR ---
Patient still on hold as per nurse. Not yet ready for PT. Addendum: 10/27/19 at 1327 by NINA REID, PT PT Amended: Links added.
--- NOTE | 2019-10-27 17:50 | NUR ---
FAMILY AT BEDSIDE. DR JUDGE AT BEDSIDE SPEAKING TO FAMILY SISTERS HERE SPENDING TIME WITH PATIENT PRIOR TO SIGNING WITHDRAWAL OF LIFE SUPPORT. HAD LONG DISCUSSION WITH SISTERS WHERE TALI STATED MULTIPLE TIMES THAT HE WOULD NOT HAVE WANTED THIS. WELL STATING HOW ANGRY HE WOULD BE AT HER IF WE REMOVED HIS LEGS. SHE IS VERY UNDERSTANDING OF THE SITUATION THANKS TO REPEATED CONVERSATIONS VIA TELEPHONE WITH DR JUGDE AND DR SHEPARD. PLEASE REFER TO DNR, WITHDRAWAL OF LIFE SUPPORT, AND DOCUMENTATION OF
--- NOTE | 2019-10-27 18:10 | NUR ---
PATIENT EXTUBATED TO ROOM AIR ORDERED, FAMILY AT BEDSIDE
--- NOTE | 2019-10-27 18:59 | NUR ---
CALLED TO PRONOUNCE CONRAD MANTILLA AT THIS DATE 10/27/19 AT 1859. NO APICAL PULSE AUSCULTATED, NO RESPIRATIONS, AND NO PAPILLARY LIGHT REFLEXES NOTED BILATERALLY. TWO SISTERS AT BEDSIDE. ALFIE VALDES. SISTER DECLINED AUTOPSY TALI MANTILLA.
--- NOTE | 2019-10-27 19:50 | NUR ---
PATIENT PRONOUNCED BY ASSISTANT COUNTY ATTORNEY, Ganesh YAN,RN @ [phone]. ANGEL NOTIFIED- RULED OUT FOR ALL DONATIONS, CASE CLOSED. DR JUDGE AND DR MAX GOVEA NOTIFIED OF PATIENT"S PASSING. TWO DAUGHTERS AT BEDSIDE REFUSED AUTOPSY. EMOTIONAL SUPPORT GIVEN, QUESTIONS ANSWERED.
--- NOTE | 2019-10-27 22:38 | NUR ---
Postmortem care given. Patient transferred [place] the [facility] [place].
== END 2019-10-27 18:59 | disposition expired | DRG 853 ==
LOC: EDH 14:21 → EDHIP 17:20 → 2DH 18:40 → 3CH 10-22 15:49 → DAHIP 10-23 12:33 → 2BH 10-24 17:37
PROVIDERS: ADMIT Internal Medicine; ATTEND Internal Medicine
PROC: 5A09357 Assistance with Respiratory Ventilation, Less than 24 Consecutive Hours, Continuous Positive Airway Pressure (ICD-10-PCS; principal; 2019-10-23)
PROC: 5A1955Z Respiratory Ventilation, Greater than 96 Consecutive Hours (ICD-10-PCS; 2019-10-23)
PROC: 0BH17EZ Insertion of Endotracheal Airway into Trachea, Via Natural or Artificial Opening (ICD-10-PCS; 2019-10-23)
PROC: 0W9B3ZZ Drainage of Left Pleural Cavity, Percutaneous Approach (ICD-10-PCS; 2019-10-23)
PROC: 0BCB8ZZ Extirpation of Matter from Left Lower Lobe Bronchus, Via Natural or Artificial Opening Endoscopic (ICD-10-PCS; 2019-10-23)
PROC: 0BC58ZZ Extirpation of Matter from Right Middle Lobe Bronchus, Via Natural or Artificial Opening Endoscopic (ICD-10-PCS; 2019-10-23)
PROC: 0BC38ZZ Extirpation of Matter from Right Main Bronchus, Via Natural or Artificial Opening Endoscopic (ICD-10-PCS; 2019-10-23)
PROC: 0BC68ZZ Extirpation of Matter from Right Lower Lobe Bronchus, Via Natural or Artificial Opening Endoscopic (ICD-10-PCS; 2019-10-23)
PROC: 0B9H8ZX Drainage of Lung Lingula, Via Natural or Artificial Opening Endoscopic, Diagnostic (ICD-10-PCS; 2019-10-23)
PROC: 031 Upper Arteries, Bypass (ICD-10-PCS; 2019-10-25)
PROC: 04CL0ZZ Extirpation of Matter from Left Femoral Artery, Open Approach (ICD-10-PCS; 2019-10-25)
PROC: 04CK0ZZ Extirpation of Matter from Right Femoral Artery, Open Approach (ICD-10-PCS; 2019-10-25)
PROC: 30233K1 Transfusion of Nonautologous Frozen Plasma into Peripheral Vein, Percutaneous Approach (ICD-10-PCS; 2019-10-26)
PROC: 30233R1 Transfusion of Nonautologous Platelets into Peripheral Vein, Percutaneous Approach (ICD-10-PCS; 2019-10-26)
DX: A41.9 Sepsis, unspecified organism (principal); J69.0 Pneumonitis due to inhalation of food and vomit; I50.33 Acute on chronic diastolic (congestive) heart failure; J96.01 Acute respiratory failure with hypoxia; J96.02 Acute respiratory failure with hypercapnia; K72.00 Acute and subacute hepatic failure without coma; N17.0 Acute kidney failure with tubular necrosis; R65.21 Severe sepsis with septic shock; E87.2 Acidosis; G93.40 Encephalopathy, unspecified; I74.3 Embolism and thrombosis of arteries of the lower extremities; I96 Gangrene, not elsewhere classified; M62.82 Rhabdomyolysis; N39.0 Urinary tract infection, site not specified; D64.9 Anemia, unspecified; D69.6 Thrombocytopenia, unspecified; E78.5 Hyperlipidemia, unspecified; E87.5 Hyperkalemia; F17.200 Nicotine dependence, unspecified, uncomplicated; I08.0 Rheumatic disorders of both mitral and aortic valves; I46.9 Cardiac arrest, cause unspecified; I70.203 Unspecified atherosclerosis of native arteries of extremities, bilateral legs; J43.9 Emphysema, unspecified; J98.4 Other disorders of lung; K57.30 Diverticulosis of large intestine without perforation or abscess without bleeding; K74.60 Unspecified cirrhosis of liver; K76.0 Fatty (change of) liver, not elsewhere classified; Z20.828 Contact with and (suspected) exposure to other viral communicable diseases; R57.1 Hypovolemic shock; Z63.8 Other specified problems related to primary support group; Z79.02 Long term (current) use of antithrombotics/antiplatelets; Z79.82 Long term (current) use of aspirin; Z87.01 Personal history of pneumonia (recurrent); Z91.14 Patient's other noncompliance with medication regimen; Z91.19 Patient's noncompliance with other medical treatment and regimen; Z71.89 Other specified counseling
CPT/HCPCS: 31500; 31645; 36415; 36600; 71045; 75635; 80048; 80053; 81001; 82140; 82435; 82550; 82803; 82945; 82947; 82948; 83605; 83615; 83735; 83874; 83880; 83935; 83986; 84100; 84132; 84145; 84157; 84295; 84484; 84540; 85018; 85025; 85027; 85347; 85384; 85520; 85610; 85730; 86022; 86850; 86900; 86901; 86922; 86927; 87040; 87071; 87088; 87116; 87205; 87206; 87633; 87635; 87804; 87880; 89051; 93005; 93306; 93925; 94002; 94003; 94640; 94660; 94664; 94667; 94668; 99291; A4344; A4351; C1729; C1768; C9113; G0378; J0171; J0330; J0690; J0883; J1200; J1644; J1720; J1940; J1956; J2001; J2020; J2060; J2185; J2250; J2543; J2704; J2710; J2930; J3010; J3411; J3430; J3480; J3490; J7030; J7040; J7060; J7070; J7120; J7608; P9017; P9034; Q9967